=== PATIENT | male | born 1955 | race Caucasian/White ===

== ENCOUNTER 2025-05-09 00:05 | Emergency (ER) | payer MEDICARE, OTHER, SELFPAY ==
[2025-05-09] VITALS (7 sets, daily range): BP systolic 117–162; BP diastolic 83–105; BMI 23.3
[2025-05-09 00:34] LABS: Hematocrit 41.9 % (39.0-52.0); Hemoglobin 14.1 g/dL (13.0-18.0); Mean Corp Hgb Conc. 33.7 g/dL (33.0-37.0); Mean Corpuscular Volume 84.1 fL (80.0-94.0); Nucleated Red Blood Cells % 0 % (-); Platelet Count 202 10^3/uL (130-400); Red Cell Dist. Width 14.0 % (11.5-14.5)
[2025-05-09 00:42] LABS: Blood Urea Nitrogen 21 mg/dl (9-20); Calcium 9.3 mg/dl (8.4-10.2); Carbon Dioxide 28 mmol/L (22-30); Chloride 104 mmol/L (98-107); Estimated Creatinine Clearance 85 ml/min; Glucose 123 mg/dl (70-99); Potassium 3.5 mmol/L (3.5-5.1); Sodium 135 mmol/L (135-145); eGFR > 60.00
--- NOTE | 2025-05-09 00:45 | ED.GENMED ---
History of Present Illness
General
Chief Complaint: Heart Rate Problem
Source: patient
Exam Limitations: none
Time Seen by Provider: 05/09/25 00:38
History of Present Illness
History of Present Illness:
See MDM
Past History
Past History
ED Past Medical History: Hypercholesterolemia
ED Past Surgical History: None
Social History
Tobacco: Non-smoker
Alcohol: Occasional
Phy Exam
Physical Exam
Physical Exam:
See MDM
Scores
[id number] Score for Afib Stroke Risk
Age in Years (65=0, 65-74=1, >/=75=2): 65-74
Sex (Female=+1): Male
Congestive Heart Failure History (Yes=+1): No
Hypertension History (Yes=+1): No
Stroke/TIA/Thromboembolism History (Yes=+2): No
Vascular Disease History (Yes=+1): No
Diabetes Mellitus (Yes=+1): No
Score: 1
Anticoagulation Recommendations: Consider anticoagulation (as validated in nonvalvular fib)
Course
Orders/Labs/Results
Orders:
Orders
05/09/25 00:07
Electrocardiogram (*1) Urgent
Reason for Study: Atrial Fibrillation
05/09/25 00:08
EKG- Treatment ONCE
05/09/25 00:16
Basic Metabolic Panel Urgent
Complete Blood Count/With Diff Urgent
TSH Reflex To Free T4 Urgent
Comment: ADD ON
05/09/25 00:38
Add On- LAB Urgent
Tests Added?: tsh reflex free T4
05/09/25 00:42
Diltiazem HCl [Cardizem] 25 mg .ROUTE .STK-MED ONE
05/09/25 00:44
Diltiazem HCl [Cardizem] 10 mg IV NOW STA
05/09/25 02:48
Apixaban [Eliquis] 5 mg PO ONCE ONE
Metoprolol Xl [Toprol Xl] 12.5 mg PO NOW STA
Abnormal Lab Results
05/09/25
00:16
MPV 10.6 H fL
(7.4-10.4)
BUN 21 H mg/dl
(9-20)
Glucose 123 H mg/dl
(70-99)
05/09/25 00:16
05/09/25 00:16
Vital Signs
Initial and Last Documented VS:
Initial Vital Signs
Temp Pulse Resp BP Pulse Ox
98.6 F 126 12 162/87 99
05/09/25 00:12 05/09/25 00:12 05/09/25 00:12 05/09/25 00:12 05/09/25 00:12
Last Documented Vital Signs
Temp Pulse Resp BP Pulse Ox
98.6 F 80 10 137/88 98
05/09/25 00:12 05/09/25 02:53 05/09/25 02:53 05/09/25 02:53 05/09/25 02:53
MDM/Problems Addressed
Differential Diagnosis Includes:
Note:
CHIEF COMPLAINT(S)
Elevated heart rate and sensation of fluttering in the chest.
HISTORY OF PRESENT ILLNESS
The patient is a 69-year-old male presenting with a sensation of fluttering in the chest and elevated heart rate. The episode began in the evening after going out to dinner. The patient noted a heart rate increase from his baseline of mid-40s to
50s, escalating gradually to 164 bpm. He eventually called emergency services when the heart rate was significantly elevated. The patient described the sensations as a 'weird feeling' and noted an associated light flutter in the upper chest. The
patient denied significant pain. His usual resting heart rate is in the mid-40s to 50s due to regular exercise. Notably, the patient self-reported fluctuating heart rates upon measuring with a personal heart rate monitor, culminating in a call to
emergency services. The patient has a previous understanding of atrial fibrillation but did not confirm prior official diagnosis of this condition.
PAST MEDICAL AND SURGICAL HISTORY
Patient is on atorvastatin 10 mg and tadalafil 5 mg.
CHRONIC MEDICAL CONDITIONS SIGNIFICANTLY AFFECTING CARE
Chronic conditions affecting care include management of hyperlipidemia and erectile dysfunction.
PHYSICAL EXAM
General: Alert, no acute distress.
Skin: Warm, dry.
Head: Normocephalic, atraumatic
Neck: Appears supple, trachea midline.
Eyes, Ears, Nose, Mouth, and Throat: Mildly dry mucous membranes
Cardiovascular: No signs of cyanosis. Tachycardic and irregular
Respiratory: Respirations are non-labored.
Abdomen: Non-distended
Musculoskeletal: No deformities
Neurological: No focal neurological deficit observed.
Psychiatric: Cooperative, appropriate mood and affect.
PLAN
The plan includes administration of Cardizem (diltiazem) to attempt chemical cardioversion of atrial fibrillation. Due to new onset symptoms and the inability to rule out an atrial clot, synchronized cardioversion is not an option. Based on the
patients age and his new presentation of atrial fibrillation, initiation of anticoagulation with apixaban (Eliquis) is recommended.
DIFFERENTIAL DIAGNOSIS
- The Differential Diagnosis includes, in no particular order and is not limited to:
- Atrial fibrillation with rapid ventricular response
- Paroxysmal atrial fibrillation
- Supraventricular tachycardia
- Fluttering sensation without tachycardia
- Anxiety-related palpitations
- Dehydration-induced palpitations
- Sympathomimetic drug effect
- Hyperthyroidism
- Structural heart disease
- Electrolyte imbalance
MEDICAL DECISION MAKING
- Number and Complexity of Problems Addressed: Chronic conditions affecting care include hyperlipidemia and erectile dysfunction. Differential diagnoses considered are included in the list above.
- Data:
Category 1: The planned treatment includes Cardizem for chemical cardioversion, and initiation of long-term anticoagulation with Eliquis due to the patients age, new onset symptoms, and potential clot risk.
- Risk: Given the new onset of atrial fibrillation in the context of the patients age, there is a risk of thromboembolism, prompting the need for anticoagulation. Prescription medication, namely anticoagulation with Eliquis, was prescribed for
ongoing management upon discharge.
My independent EKG interpretation is:
- Time of EKG: Not specified
- Rhythm: Atrial fibrillation with rapid ventricular response
- Heart rate: 128 beats per minute
- [place]: Normal axis
- ST segment changes: No ST elevation
- Notable intervals, T wave changes, and additional abnormalities: Not specified
SUMMARY OF ENCOUNTER
The 69-year-old male patient presented to the emergency department with a sensation of fluttering in the chest and an elevated heart rate, leading to a suspicion of new onset atrial fibrillation. The patient was managed with an intravenous dose of
diltiazem (Cardizem) for chemical cardioversion, which successfully controlled his heart rate. After a prolonged observation period, his heart rate remained controlled, and the patient reported feeling comfortable.
DISPOSITION
Discharge.
ASSESSMENT
Atrial fibrillation with rapid ventricular response, controlled with medication.
PLAN
The patient will be started on apixaban (Eliquis) for stroke prevention due to his [id number] score. Additionally, metoprolol (Toprol) will be initiated to assist with heart rate control. The patient is placed on a cardiac callback tracker for
monitoring purposes.
MEDICATION RECONCILIATION
- Administered in ED: Diltiazem (Cardizem) IV for rate control.
- Prescribed upon discharge: Apixaban (Eliquis) for anticoagulation and Metoprolol (Toprol) for rate control.
MEDICAL DECISION MAKING
- Number and Complexity of Problems Addressed: Chronic conditions affecting care include hyperlipidemia and erectile dysfunction. The differential diagnosis includes atrial fibrillation with rapid ventricular response, paroxysmal atrial
fibrillation, supraventricular tachycardia, fluttering sensation without tachycardia, anxiety-related palpitations, dehydration-induced palpitations, sympathomimetic drug effect, hyperthyroidism, structural heart disease, and electrolyte imbalance.
- Data:
Category 1:
My independent EKG interpretation is atrial fibrillation with rapid ventricular response.
- Risk: Prescription medication was prescribed, including anticoagulation with apixaban (Eliquis).
DIAGNOSIS
- Atrial fibrillation with rapid ventricular response (ICD-10: I48.91).
*Pulse Oximetry
SaO2: 99
Oxygen Mode of Delivery: Room air
Patient hypoxic: no
*Critical Care Note
Total Time (30-74mins, 75-104mins- exclusive of procedures): Not Applicable
ED Attending Note
-
Portions of this chart may have been created with voice recognition software.� Occasional wrong word or��sound alike� substitutions may have occurred due to the inherent limitations of voice recognition software.
Discharge Plan
Departure
Patient Disposition: Home (Routine Discharge)
Date of Disposition: 05/09/25
Time of Disposition: 02:49
Patient with high blood pressure during this ER visit?: No
Discharge Problem:
New onset a-fib
Instructions: Atrial Fibrillation (DC), Chest Pain DCA Follow Up
Prescriptions:
New
Eliquis 5 mg tablet
5 mg PO BID Qty: 60 0RF
metoprolol succinate [Toprol XL] 25 mg tablet extended release 24 hr
12.5 mg PO BID Qty: 30 0RF
No Action
atorvastatin 10 mg Tablet
10 mg PO DAILY
Referrals:
Emile Rivera MD [Active, Cardiology]
Rupali Hyde MD [Family Provider, Family Practice]
Activity Restrictions/Additional Instructions:
Please return for any worsening symptoms.
You may return at any time if you have further concerns.
Please follow up with your doctor at the first available appointment, preferably this week.
You were placed on the cardiac callback tracker. Someone from their office should call you in the next few days. If you do not hear from them in the next few days, please give them a call.
Thank you for choosing [facility].
Interventions
Interventions:
*Risk Screen - Suicide Last Done: 05/09/25 00:12
*General Assessment Last Done: 05/09/25 00:12
*Neglect/Abuse Screening Last Done: 05/09/25 00:12
*ED- Fall Risk Assessment Last Done: 05/09/25 00:12
*ED COVID-19 Vaccine History Last Done: 05/09/25 00:12
*ED Influenza Vaccine History Last Done: 05/09/25 00:12
ED- Cardiac Assessment Last Done: 05/09/25 00:30
ED- Pulmonary Assessment Last Done: 05/09/25 00:30
Discharge Date and Time
Print Language: MONEGASQUE
[2025-05-09] MEDS: CARDIZEM 10 MG IV (00:46)
--- NOTE | 2025-05-09 01:12 | EDRN ---
Patient ambulated into the restroom and back in bed resting, is at bedside
[2025-05-09] MEDS: TOPROL XL 12.5 MG PO (02:53)
[2025-05-09] MEDS: ELIQUIS 5 MG PO (02:53)
== END 2025-05-09 03:08 | disposition home or self-care (01) ==
LOC: EMR 00:05
PROVIDERS: EMERGENCY PHYSICIAN Student in an Organized Health Care Education/Training Program; FAMILY PHYSICIAN Family Medicine
DX: I48.91 Unspecified atrial fibrillation (principal); E78.00 Pure hypercholesterolemia, unspecified
CPT/HCPCS: 96374; 99284; 80048; 84443; 85025; 93005

== ENCOUNTER → 2025-06-08 07:55 | Outpatient (REF) | payer MEDICARE, OTHER, SELFPAY | LOC: DHSLP 07:55 | PROVIDERS: ATTENDING PHYSICIAN Family Medicine | DX: G47.30 Sleep apnea, unspecified (principal); R06.83 Snoring | CPT/HCPCS: 95800 ==

== ENCOUNTER → 2025-06-16 08:06 | Outpatient (REF) | payer MEDICARE, OTHER, SELFPAY | LOC: RCS 08:06 | PROVIDERS: ATTENDING PHYSICIAN Internal Medicine Cardiovascular Disease; FAMILY PHYSICIAN Family Medicine | DX: I48.91 Unspecified atrial fibrillation (principal) | CPT/HCPCS: 93306 ==